=== PATIENT | female | born 1925 | race Caucasian/White ===

== ENCOUNTER 2017-05-11 15:38 | Observation (INO) | payer BC, MEDICARE ==
--- NOTE | 2017-05-11 15:50 | EDM.PDOC ---
ED HPI GENERAL MEDICAL PROBLEM - General Stated Complaint: FALL VIA NORTH Time Seen by Provider: 05/11/17 15:45 Source of Information: Reports: Patient, RN Notes Reviewed History Limitations: Reports: No Limitations - History of Present Illness INITIAL COMMENTS - FREE TEXT/NARRATIVE: 89-year-old female presents to the emergency department today via EMS services following a fall at home she was going up the steps of her deck missed a step she believes this is due to her peripheral neuropathy was carrying in groceries fell hit the back of her head she is complaining of head pain and left hip pain - Related Data Allergies Allergy/AdvReac Type Severity Reaction Status Date / Time Sulfa (Sulfonamide Allergy Cannot Verified 05/11/17 15:50 Antibiotics) Remember Home Meds: Home Meds NK [No Known Home Meds] 05/11/17 [History] Past Medical History Neurological History: Reports: Neuropathy, Peripheral Social & Family History - Tobacco Use Smoking Status *Q: Never Smoker Review of Systems - Review of Systems Review Of Systems: See Below Respiratory: Reports: No Symptoms Cardiovascular: Reports: No Symptoms GI/Abdominal: Reports: No Symptoms Musculoskeletal: Reports: Neck Pain, Joint Pain (Left hip) Neurological: Reports: Headache ED EXAM, GENERAL - Physical Exam Exam: See Below Free Text/Narrative:: Primary survey GCS of 15 airway is open patent and clear lungs are clear to auscultation bilaterally cut abashed inserts regular rate and rhythm S1-S2 Secondary survey General: Elderly female, not in any distress, GCS of 15, alert and oriented x3 HEENT: head is small laceration appreciated posterior aspect the scalp bleeding is controlled normocephalic, eyes pupils equal round reactive to light, sclera clear no conjunctivitis appreciated. Ears tympanic membranes clear and goode landmarks and light reflex are present bilaterally canals are clear. Nose no septal deviation, nares are clear, no blood present. Mouth mucosa is moist and pink no erythema or exudate noted in soft palate, tongue is midline uvula is midline, dentition is intact. Neck: C-collar in place deferred Lungs: clear to auscultation bilaterally with symmetrical respirations, no adventitious noise appreciated. CV: Regular rate and rhythm S1 and S2 appreciated no murmurs rubs or gallops noted. Abdomen: Soft, nontender, no palpable masses or organomegaly appreciated, no distention no guarding bowel sounds are present, [scars ]. Neuro: Cranial nerves II through XII grossly intact Skin: Warm and dry, intact Extremities: No no tenderness to the wrist elbows and shoulders bilaterally, pelvic rock's is negative she does have tenderness to palpation with internal and external rotation of the left hip right hip is nontender knees ankles bilaterally nontender Front/Back Body Diagram: 1 - 1 cm superficial lac Course - Vital Signs Last Recorded V/S: Last Vital Signs Temp 98.4 F 05/11/17 15:53 Pulse 106 H 05/11/17 16:49 Resp 20 05/11/17 16:49 BP 182/96 H 05/11/17 16:49 Pulse Ox 93 L 05/11/17 16:49 - Orders/Labs/Meds Orders: Active Orders 24 hr Category Date Time Status Cervical Spine wo Cont [CT] Stat Exams 05/11/17 15:45 Taken Head wo Cont [CT] Stat Exams 05/11/17 15:45 Taken Hip Min 2V or 3V Lt [CR] Stat Exams 05/11/17 15:45 Taken Pelvis wo Cont [CT] Stat Exams 05/11/17 17:03 Taken Meds: Medications Discontinued Medications Generic Name Dose Route Start Last Admin Trade Name Freq PRN Reason Stop Dose Admin Ondansetron HCl 4 mg 05/11/17 16:42 05/11/17 16:49 Zofran IVPUSH 05/11/17 16:43 4 mg ONETIME ONE Administration Departure - Departure Time of Disposition: 18:31 Disposition: Admitted As Inpatient 66 Condition: Fair Clinical Impression: Nondisplaced fracture of left tibial spine, initial encounter for closed fracture Qualifiers: Encounter type: initial encounter Qualified Code(s): S82.115A - Nondisplaced fracture of left tibial spine, initial encounter for closed fracture - Discharge Information - My Orders Last 24 Hours: My Active Orders 05/11/17 15:45 Cervical Spine wo Cont [CT] Stat Head wo Cont [CT] Stat Hip Min 2V or 3V Lt [CR] Stat 05/11/17 17:03 Pelvis wo Cont [CT] Stat - Assessment/Plan Last 24 Hours: My Active Orders 05/11/17 15:45 Cervical Spine wo Cont [CT] Stat Head wo Cont [CT] Stat Hip Min 2V or 3V Lt [CR] Stat 05/11/17 17:03 Pelvis wo Cont [CT] Stat Plan: Assessment Acuity = acute Site and laterality = isichal spine fracture left closed Etiology = secondary to a fall Manifestations = pain Location of injury = Home Lab values = CT scan describes fracture above, CT scan of the head and neck are negative Plan she has only received 100 g of fentanyl she is reluctant to take any further medication we tried ambulating around the emergency department she had difficulty ambulating with a walker which she normally use she became short of breath and pain was exacerbated. She is from the [facility] area I called and discussed the case with hospitalist web solutions architect he agreed to come and evaluate the patient in the ED for admission and pain control and help work on disposition and discharge Patient was in agreement with the plan all questions were answered, This note was dictated using [employer] voice recognition software please call with any questions.
[2017-05-11] MEDS ORDERED: Ondansetron 4 MG/2 ML SDV IVPUSH ONE (16:42)
--- NOTE | 2017-05-11 19:43 | PCM.HP ---
H&P History of Present Illness - General Date of Service: 05/11/17 Admit Problem/Dx: Admission Diagnosis/Problem Admission Diagnosis/Problem Fracture of bone Source of Information: Patient, Provider, RN Notes Reviewed History Limitations: Reports: No Limitations - History of Present Illness Initial Comments - Free Text/Narative: Ms. Crook is an 89-year-old woman who is admitted to observation status for pain management. She was in her usual state of good health today when she fell onto her left side and noted pain in her left os chair hip. She was brought into the emergency department for further evaluation, CT scan of the head and neck were unremarkable. CT scan of the hip does documents a nondisplaced fracture of her left if she'll spine. She has significant pain on attempt of ambulation and will be admitted overnight for pain management. She is otherwise very healthy and has no significant medical problems other than peripheral neuropathy. - Related Data Allergies/Adverse Reactions: Allergies Allergy/AdvReac Type Severity Reaction Status Date / Time Sulfa (Sulfonamide Allergy Cannot Verified 05/11/17 15:50 Antibiotics) Remember Home Medications: Home Meds NK [No Known Home Meds] 05/11/17 [History] Past Medical History - Past Health History Medical/Surgical History: Denies Medical/Surgical History Neurological History: Reports: Neuropathy, Peripheral - Infectious Disease History Infectious Disease History: Reports: Chicken Pox, Measles, Mumps Social & Family History - Tobacco Use Smoking Status *Q: Never Smoker - Caffeine Use Caffeine Use: Reports: Coffee - Recreational Drug Use Recreational Drug Use: No H&P Review of Systems - Review of Systems: Review Of Systems: See Below General: Reports: No Symptoms HEENT: Reports: No Symptoms Pulmonary: Reports: No Symptoms Cardiovascular: Reports: No Symptoms Gastrointestinal: Reports: No Symptoms Genitourinary: Reports: No Symptoms Musculoskeletal: Reports: No Symptoms Skin: Reports: No Symptoms Psychiatric: Reports: No Symptoms Neurological: Reports: Numbness, Pre-Existing Deficit (Peripheral neuropathy) Hematologic/Lymphatic: Reports: No Symptoms Immunologic: Reports: No Symptoms Exam - Exam Exam: See Below - Vital Signs Vital Signs: Last Vital Signs Temp 98.4 F 05/11/17 15:53 Pulse 106 H 05/11/17 16:49 Resp 20 05/11/17 16:49 BP 182/96 H 05/11/17 16:49 Pulse Ox 93 L 05/11/17 16:49 Weight: 155 lb - Exam Quality Assessment: DVT Prophylaxis General: Alert, Oriented, Cooperative, Mild Distress HEENT: Conjunctiva Clear, Hearing Intact, Mucosa Moist & [place], Normal Nasal Septum, Posterior Pharynx Clear, Pupils Equal Neck: Supple, Trachea Midline, +2 Carotid Pulse wo Bruit Lungs: Clear to Auscultation, Normal Respiratory Effort Cardiovascular: Regular Rate, Regular Rhythm, Normal S1, Normal S2. No: Systolic Murmur, Diastolic Murmur Abdomen: Normal Bowel Sounds, Soft Back Exam: Normal Inspection, Full Range of Motion, NT Extremities: Other (Pain to palpation left posterior hip) Skin: Warm, Dry, Intact Neurological: Cranial Nerves Intact, Strength Equal Bilateral, Normal Speech, Normal Tone. No: Focal Deficit *Q Meaningful Use (ADM) - VTE *Q VTE Criteria *Q: - VTE Risk Assess *Q Each Risk Factor Represents 1 Point: None Total Score 1 Point Risk Factors: 0 Each Risk Factor Represents 2 Points: None Total Score 2 Point Risk Factors: 0 Each Risk Factor Represents 3 Points: Age 75 Years or Greater Total Score 3 Point Risk Factors: 3 Each Risk Factor Represents 5 Points: None Total Score 5 Point Risk Factors: 0 Venous Thromboembolism Risk Factor Score *Q: 3 - Stroke *Q Stroke Criteria *Q: - AMI *Q AMI Criteria *Q: Problem List Initiated/Reviewed/Updated: Yes Orders Last 24hrs: Active Orders 24 hr Category Date Time Status Patient Status Manage Transfer [TRANSFER] Routine ADT 05/11/17 19:31 Ordered Cervical Spine wo Cont [CT] Stat Exams 05/11/17 15:45 Taken Head wo Cont [CT] Stat Exams 05/11/17 15:45 Taken Hip Min 2V or 3V Lt [CR] Stat Exams 05/11/17 15:45 Taken Pelvis wo Cont [CT] Stat Exams 05/11/17 17:03 Taken Resuscitation Status Routine Resus Stat 05/11/17 19:33 Ordered Assessment/Plan Comment:: ASSESSMENT AND PLAN NONDISPLACED FRACTURE OF THE LEFT ISCHEAL SPINE-she is unable to ambulate because of significant pain, so will be admitted to observation status for pain management -Oxycodone 5 mg by mouth every 4 hours as needed for pain -Tylenol as needed -Plan for discharge with family tomorrow PERIPHERAL NEUROPATHY-patient is unaware of the underlying etiology of her neuropathy MAINTENANCE ISSUES -DVT prophylaxis; Lovenox 40 mg subcutaneous daily -GI prophylaxis; not indicated -Kirby catheter; not indicated -Nutrition; regular diet -Nicotinic dependence; not required CODE STATUS-FULL CODE ADMISSION STATUS-this patient will be admitted to observation status, expect no more than a one night hospital stay for evaluation and management of problems as outlined above. DISPOSITION-anticipate discharge to home after the hospital stay. PRIMARY CARE PROVIDER-she resides in [facility] and receives her primary care there
[2017-05-11] MEDS ORDERED: Ondansetron 4 MG/2 ML SDV IV PRN (19:59)
[2017-05-11] MEDS ORDERED: Docusate Sodium 100 MG Cap PO PRN (19:59)
[2017-05-11] MEDS ORDERED: Enoxaparin 40 MG/0.4 ML Syringe SUBCUT SCH (19:59)
[2017-05-11] MEDS ORDERED: Magnesium Hydroxide 400 MG/5 ML Susp 30 ML Cup PO PRN (19:59)
[2017-05-11] MEDS ORDERED: Polyethylene Glycol 3350 Powder 17 GM Packet PO PRN (19:59)
[2017-05-11] MEDS ORDERED: Sodium Chloride 0.9% 10 ML Syringe FLUSH PRN (19:59)
[2017-05-11] MEDS ORDERED: oxyCODONE 5 MG Tab PO PRN (19:59)
[2017-05-11] MEDS ORDERED: Melatonin 3 MG Tab PO SCH (21:00)
[2017-05-11] MEDS: Acetaminophen 325 MG Tab PO PRN (21:57)
[2017-05-11] MEDS ORDERED: Enoxaparin 30 MG/0.3 ML Syringe SUBCUT SCH (22:00)
[2017-05-12] MEDS: Acetaminophen 325 MG Tab PO PRN ×2 (08:08→15:00)
--- NOTE | 2017-05-12 13:28 | MR ---
Hip wo Cont Lt INDICATION: Persistent groin pain after a fall yesterday COMPARISON: CT 05/11/2017. FINDINGS: Again demonstrated is a minimally displaced, acute, comminuted fracture of the left inferi or pubic ramus. Nondisplaced acute fracture at the junction of the left superior pubic ramus and ant erior column of the acetabulum. No evidence for femoral or left sacral ala fracture. Mild edema in t he adductor musculature consistent with muscle strain. Exam otherwise unremarkable. IMPRESSION: Acute fractures of the mid left inferior pubic ramus, and at the junction of the left vides perior pubic ramus and anterior column of the acetabulum.
[2017-05-12 14:56] VITALS: BP 180/89
--- NOTE | 2017-05-12 15:10 | PCM.DCSUM1 ---
Discharge Summary - Hospital Course Brief History: Ms. Crook is an 89-year-old woman who is admitted through the emergency department to observation status for management of pain following a fall. - Discharge Data Discharge Date: 05/12/17 Discharge Disposition: Home, W Home Health Agency 06 Condition: Fair - Discharge Diagnosis/Problem(s) (1) Fracture of left superior pubic ramus SNOMED Code(s): 957223972 ICD Code: S32.512A - FRACTURE OF SUPERIOR RIM OF LEFT PUBIS, INIT FOR CLOS FX Status: Acute Current Visit: Yes (2) Fracture of left inferior pubic ramus SNOMED Code(s): 447366305 ICD Code: S32.592A - OTH FRACTURE OF LEFT PUBIS, INIT ENCNTR FOR CLOSED FRACTURE Status: Acute Current Visit: Yes (3) Pain management SNOMED Code(s): 721667393, 345670469 ICD Code: R52 - PAIN, UNSPECIFIED Status: Acute Current Visit: Yes - Patient Summary/Data Consults: Consultations 05/11/17 19:59 PT Evaluation and Treatment [CONS] Routine Please Evaluate and Treat. PT Reason for Consult: fracture This query below is only for informational purposes and is not editable. Hospital Course: Ms. Crook experienced a fall on the day of admission, because of significant left hip pain she presented to the emergency department for further evaluation. CT scan suggested possible nondisplaced fracture of the initial spine. CT scan showed no evidence of other fractures. She was given pain medication as needed and monitored overnight. On evaluation by physical therapist she was able to walk short distances using a walker. MRI was obtained because of persistent left groin pain, this did document displaced fracture of the left inferior pubic rami as well as a fracture of the left superior pubic rami involving a portion of the acetabulum. MRI was reviewed by orthopedic surgery, feeling was that the fracture did not involve the weight bearing portion of the acetabulum so that no further intervention would be required. She is able to bear weight and will be discharged home with family. Activity will be as tolerated and she will resume her usual diet. I've encouraged her to follow-up with primary care provider in the next few days and consider home care with home physical therapy and occupational therapy. - Patient Instructions Diet: Usual Diet as Tolerated Activity: As Tolerated Other/Special Instructions: Please schedule appointment with primary care provider within the next few days. Consider home care with home physical therapy. - Discharge Plan Prescriptions/Med Rec: oxyCODONE 5 mg PO Q4H PRN #20 tablet PRN Reason: Pain Home Medications: Home Meds oxyCODONE 5 mg PO Q4H PRN #20 tablet 05/12/17 [Rx] Referrals: PCP,None [Primary Care Provider] - - Patient Data Vitals - Most Recent: Last Vital Signs Temp 98.9 F 05/12/17 14:55 Pulse 79 05/12/17 14:55 Resp 16 05/12/17 14:55 BP 180/89 H 05/12/17 14:55 Pulse Ox 94 L 05/12/17 14:55 Weight - Most Recent: 123 lb 8 oz I&O - Last 24 hours: Intake & Output 05/12/17 05/12/17 05/12/17 06:59 14:59 22:59 Output Total 100 Balance -100 Med Orders - Current: Current Medications Acetaminophen (Tylenol) 650 mg PO Q4H PRN PRN Reason: Pain (Mild 1-3)/fever Last Admin: 05/12/17 15:00 Dose: 650 mg Docusate Sodium (Colace) 100 mg PO BID PRN PRN Reason: Constipation Enoxaparin Sodium (Lovenox) 30 mg SUBCUT Q24H SONAL Magnesium Hydroxide (Milk Of Magnesia) 30 ml PO Q12H PRN PRN Reason: Constipation Melatonin (Melatonin) 9 mg PO BEDTIME [facility] Last Admin: 05/11/17 21:38 Dose: Not Given Ondansetron HCl (Zofran) 4 mg IV Q4H PRN PRN Reason: Nausea/Vomiting Oxycodone HCl (Oxycodone) 5 mg PO Q4H PRN PRN Reason: Pain (moderate 4-6) Last Admin: 05/11/17 21:58 Dose: 5 mg Polyethylene Glycol (Miralax) 17 gm PO DAILY PRN PRN Reason: Constipation Sodium Chloride (Saline Flush) 10 ml FLUSH ASDIRECTED PRN PRN Reason: Keep Vein Open Discontinued Medications Enoxaparin Sodium (Lovenox) 40 mg SUBCUT DAILY SONAL Enoxaparin Sodium (Lovenox) 30 mg SUBCUT DAILY [facility] Last Admin: 05/11/17 22:05 Dose: 30 mg Ondansetron HCl (Zofran) 4 mg IVPUSH ONETIME ONE Stop: 05/11/17 16:43 Last Admin: 05/11/17 16:49 Dose: 4 mg *Q Meaningful Use (DIS) - VTE *Q VTE Criteria *Q: - Stroke *Q Stroke Criteria *Q: - AMI *Q AMI Criteria *Q:
[2017-05-12] MEDS ORDERED: Enoxaparin 30 MG/0.3 ML Syringe SUBCUT SCH (20:00)
== END 2017-05-12 16:08 | disposition home health service (06) ==
LOC: JP.ED 15:38 → JP.ICU 19:31
PROVIDERS: ADMIT Hospitalist; ATTEND Hospitalist
DX: S32.512A Fracture of superior rim of left pubis, initial encounter for closed fracture (principal); S82.115A Nondisplaced fracture of left tibial spine, initial encounter for closed fracture; W19.XXXA Unspecified fall, initial encounter; G62.9 Polyneuropathy, unspecified; R51 Headache; M25.552 Pain in left hip
CPT/HCPCS: 70450; 72125; 72192; 73502; 73721; 96372; 96374; 97162; 99217; 99219; 99284; 99285; A9270; G0378; J1650; J2405